=== PATIENT | male | born 1975 ===

== ENCOUNTER 2018-04-14 17:11 | Emergency (ER) | payer SELFPAY ==
[2018-04-14 17:42] VITALS: BP 128/81; PULSE 78; RESP 18; TEMP 98.6; O2SAT 100
[2018-04-14] MEDS ORDERED: Liquid Adhesive TOP ONE (17:50)
--- NOTE | 2018-04-14 17:54 | ED PDOC ---
Arrival/HPI - General Chief Complaint: Trauma Historian: Patient - History of Present Illness Narrative History of Present Illness (Text): 04/14/18 17:51 42yo male with no pmhx who present with frontal headache and forehead laceration s/p trauma this morning. States a pipe fell of on top of his head, while working this morning. States he decided to come to the ED this evening because the advised him to. He notes that his last TD vaccine was 4months ago. He denies LOC, focal weakness, nausea, vomiting, visual changes, any other complaint. States he did not take any medication for the pain. Past Medical History - Provider Review Nursing Documentation Reviewed: Yes - Genitourinary/Gynecological Hx Genitourinary Disorders: No - Psychiatric Hx Psychophysiologic Disorder: No Hx Substance Use: No - Anesthesia Hx Anesthesia: No Hx Anesthesia Reactions: No Hx Malignant Hyperthermia: No Family/Social History - Physician Review Nursing Documentation Reviewed: Yes Family/Social History: Unknown Family HX Smoking Status: Never Smoked Hx Alcohol Use: No Hx Substance Use: No Allergies/Home Meds Allergies/Adverse Reactions: Allergies No Known Allergies Allergy (Verified 04/14/18 17:42) Review of Systems - Physician Review All systems were reviewed & negative as marked: Yes - Review of Systems Constitutional: Normal Eyes: Normal ENT: Normal Respiratory: Normal Cardiovascular: Normal Gastrointestinal: Normal Genitourinary Male: Normal Musculoskeletal: Normal Skin: Laceration (forehead) Neurological: Headache Endocrine: Normal Hemo/Lymphatic: Normal Psychiatric: Normal Physical Exam Vital Signs Reviewed: Yes Vital Signs Temp Pulse Resp BP Pulse Ox 04/14/18 17:39 98.6 F 78 18 128/81 100 Temperature: Afebrile Blood Pressure: Normal Pulse: Regular Respiratory Rate: Normal Appearance: Positive for: Well-Appearing, Non-Toxic, Comfortable Pain Distress: None Mental Status: Positive for: Alert and Oriented X 3 - Systems Exam Head: Present: Normocephalic, Tenderness (Overlaying hematoma on the right frontal scalp), Contusion (Approximately 3.ocm x 2.0cm hematoma noted to right frontal scalp with overlaying tenderness to palpation), Laceration (Approximately 3.0cm linear superficial laceration noted on central forehead). No: Atraumatic Pupils: Present: PERRL Extroacular Muscles: Present: EOMI Conjunctiva: Present: Normal Mouth: Present: Moist Mucous Membranes Neck: Present: Normal Range of Motion Respiratory/Chest: Present: Clear to Auscultation, Good Air Exchange. No: Respiratory Distress, Accessory Muscle Use Cardiovascular: Present: Regular Rate and Rhythm, Normal S1, S2. No: Murmurs Abdomen: No: Tenderness, Distention, Peritoneal Signs Back: Present: Normal Inspection Upper Extremity: Present: Normal Inspection. No: Cyanosis, Edema Lower Extremity: Present: Normal Inspection. No: Edema Neurological: Present: GCS=15, CN II-XII Intact, Speech Normal Skin: Present: Warm, Dry, Normal Color. No: Rashes Psychiatric: Present: Alert, Oriented x 3, Normal Insight, Normal Concentration Medical Decision Making ED Course and Treatment: 04/14/18 18:06 42yo male in ED for laceration and headache s/p head injury this morning. Pt have hematoma on the frontal scalp with tenderness on palpation. PT is up to date with his TD booster. Head CT Dermabonding wound with steri strip Tramadol Ice to hematoma Will reassess 04/14/18 18:17 Laceration irrigated with NS. Approximated with Dermabond and steri strip. Head CT No mass effect or edema. No atrophy or chronic microvascular ischemic changes. VENTRICLES: No hydrocephalus. CALVARIUM: Unremarkable. PARANASAL SINUSES: Unremarkable as visualized. No significant inflammatory changes. MASTOID AIR CELLS: Unremarkable as visualized. No inflammatory changes. OTHER FINDINGS: Right scalp hematoma. IMPRESSION: Right scalp hematoma. No acute intracranial pathology identified. Result was DW the pt and he was DC home with Tramadol rx Advised to apply ice to area To keep wound clean and dry TRT ED for redness, fever, discharge - RAD Interpretation Radiology Orders: 04/14/18 17:50 HEAD W/O CONTRAST [CT] Stat Disposition/Present on Arrival - Present on Arrival Any Indicators Present on Arrival: No History of DVT/PE: No History of Uncontrolled Diabetes: No Urinary Catheter: No History of Decub. Ulcer: No History Surgical Site Infection Following: None - Disposition Have Diagnosis and Disposition been Completed?: Yes Diagnosis: Laceration, Hematoma, Head injury Disposition: HOME/ ROUTINE Disposition Time: 18:20 Patient Plan: Discharge Patient Problems: Current Active Problems Problem Status Onset Head injury Acute Hematoma Acute Laceration Acute Condition: STABLE Discharge Instructions (ExitCare): Closed Head Injury, Laceration Repair With Glue (DC) Additional Instructions: Keep wound clean and dry Apply ice to area Return to ED for fever, redness, discharge from wound Follow up with the clinic Prescriptions: traMADol [Ultram] 50 mg PO Q6 #8 tab Referrals: Juana Duggan MD [Medical Doctor] - Follow up with primary Forms: [employer] (Bolivian)
--- NOTE | 2018-04-14 18:16 | CT ---
Date of service: 04/14/2018 PROCEDURE: CT HEAD WITHOUT CONTRAST. HISTORY: s/p trauma COMPARISON: None available. TECHNIQUE: Axial computed tomography images were obtained through the head/brain without intravenous contrast. Radiation dose: Total exam DLP = 948.28 mGy-cm. This CT exam was performed using one or more of the following dose reduction techniques: Automated exposure control, adjustment of the mA and/or kV according to patient size, and/or use of iterative reconstruction technique. FINDINGS: HEMORRHAGE: No intracranial hemorrhage. BRAIN: No mass effect or edema. No atrophy or chronic microvascular ischemic changes. VENTRICLES: No hydrocephalus. CALVARIUM: Unremarkable. PARANASAL SINUSES: Unremarkable as visualized. No significant inflammatory changes. MASTOID AIR CELLS: Unremarkable as visualized. No inflammatory changes. OTHER FINDINGS: Right scalp hematoma. IMPRESSION: Right scalp hematoma. No acute intracranial pathology identified.
== END 2018-04-14 18:35 | disposition home or self-care (01) ==
LOC: ED 17:11
DX: S01.81XA Laceration without foreign body of other part of head, initial encounter (principal); W22.8XXA Striking against or struck by other objects, initial encounter; Y92.89 Other specified places as the place of occurrence of the external cause; Y99.8 Other external cause status

== ENCOUNTER 2018-04-18 00:35 | Emergency (ER) | payer SELFPAY ==
[2018-04-18 00:37] VITALS: BMI 30.4
[2018-04-18 00:42] VITALS: RESP 18
[2018-04-18] MEDS ORDERED: Bacitracin 500 Units/gm Oint Foilpak UD TOP ONE (00:56)
[2018-04-18] MEDS ORDERED: Bacitracin 500 Units/gm Oint Foilpak UD ONE (00:56)
--- NOTE | 2018-04-18 00:56 | ED PDOC ---
Arrival/HPI - General Chief Complaint: Trauma Time Seen by Provider: 04/18/18 00:39 Historian: Patient - History of Present Illness Narrative History of Present Illness (Text): 04/18/18 00:56 Saulo Blake is a 42 year old male, with no significant past medical history, who presents to the emergency department complaining of some swelling to his scalp abrasion and forehead laceration. Patient was recently seen in the emergency department on 04/14/2018 after a pipe fell on top of his head at work and he sustained a laceration to the mid forehead and a scalp abrasion. Patient now complaining of some swelling/pain to the area and some questionable discharge yesterday, none today. Patient denies any fever, chills redness/warmth to the area, or any other complaints. Symptom Onset: Gradual Symptom Course: Unchanged Activities at Onset: Light Context: Home Past Medical History - Provider Review Nursing Documentation Reviewed: Yes - Infectious Disease Hx of Infectious Diseases: None - Genitourinary/Gynecological Hx Genitourinary Disorders: No - Psychiatric Hx Psychophysiologic Disorder: No Hx Substance Use: No - Anesthesia Hx Anesthesia: No Hx Anesthesia Reactions: No Hx Malignant Hyperthermia: No Family/Social History - Physician Review Nursing Documentation Reviewed: Yes Family/Social History: Unknown Family HX Smoking Status: Never Smoked Hx Alcohol Use: Yes Frequency of alcohol use: Socially Hx Substance Use: No Allergies/Home Meds Allergies/Adverse Reactions: Allergies No Known Allergies Allergy (Verified 04/14/18 17:42) Review of Systems - Physician Review All systems were reviewed & negative as marked: Yes - Review of Systems Constitutional: Normal. absent: Fevers Eyes: Normal ENT: Normal Respiratory: Normal. absent: SOB, Cough Cardiovascular: Normal. absent: Chest Pain Gastrointestinal: Normal. absent: Abdominal Pain, Diarrhea, Nausea, Vomiting Genitourinary Male: Normal. absent: Dysuria, Frequency, Hematuria, Urinary Output Changes Musculoskeletal: Normal. absent: Back Pain, Neck Pain Skin: Normal. absent: Rash Neurological: Normal. absent: Headache, Dizziness Endocrine: Normal Hemo/Lymphatic: Normal Psychiatric: Normal Physical Exam Vital Signs Reviewed: Yes Vital Signs Temp Pulse Resp BP Pulse Ox 04/18/18 00:42 98.3 F 74 18 121/84 97 Temperature: Afebrile Blood Pressure: Normal Pulse: Regular Respiratory Rate: Normal Appearance: Positive for: Well-Appearing, Non-Toxic, Comfortable Pain Distress: None Mental Status: Positive for: Alert and Oriented X 3 - Systems Exam Head: Present: Normocephalic, Abrasion (Healing abrasion to parietal scalp), Laceration (Healing laceration to mid forehead), Other (no swelling or discharge/no erythema). No: Tenderness, Swelling Pupils: Present: PERRL Extroacular Muscles: Present: EOMI Conjunctiva: Present: Normal Mouth: Present: Moist Mucous Membranes Neck: Present: Normal Range of Motion Respiratory/Chest: Present: Clear to Auscultation, Good Air Exchange. No: Respiratory Distress, Accessory Muscle Use Cardiovascular: Present: Regular Rate and Rhythm, Normal S1, S2. No: Murmurs Abdomen: No: Tenderness, Distention, Peritoneal Signs Back: Present: Normal Inspection Upper Extremity: Present: Normal Inspection. No: Cyanosis, Edema Lower Extremity: Present: Normal Inspection. No: Edema Neurological: Present: GCS=15, CN II-XII Intact, Speech Normal Skin: Present: Warm, Dry, Normal Color. No: Rashes Psychiatric: Present: Alert, Oriented x 3, Normal Insight, Normal Concentration Medical Decision Making ED Course and Treatment: 04/18/18 00:56 Impression: 42 year old male complaining of some swelling to healing forehead laceration and scalp abrasion. Plan: -- Keflex -- Reassess and disposition Prior Visits: Notes and results from previous visits were reviewed. Progress Notes: PROCEDURE: WOUND CARE Performed by the emergency provider Consent: Informed consent, after discussion of the risks, benefits, and alternatives to the procedure was obtained. Timeout: A timeout to verify the correct patient, procedure, and site was performed. Indication: Dressing change Procedure Site: Mid forehead Length: 3cm Procedure: Prior steri-strips were removed.No wound discharge. New steri-strips were reapplied. The site was covered with Bacitracin and dressed with clean, dry, sterile dressing. The patient tolerated the procedure well. On reevaluation the patient feels better and is in no acute distress. Patient given prescription for oral antibiotics for prophylaxis. Patient is stable for discharge. Patient was instructed to follow up with physician/clinic in 1-2 days or return if symptoms persist/worsen or new concerning symptoms arise. - Scribe Statement The provider has reviewed the documentation as recorded by the Angelaibjarad Márquez All medical record entries made by the Angelaibjarad were at my direction and personally dictated by me. I have reviewed the chart and agree that the record accurately reflects my personal performance of the history, physical exam, medical decision making, and the department course for this patient. I have also personally directed, reviewed, and agree with the discharge instructions and disposition. Disposition/Present on Arrival - Present on Arrival Any Indicators Present on Arrival: No History of DVT/PE: No History of Uncontrolled Diabetes: No Urinary Catheter: No History of Decub. Ulcer: No History Surgical Site Infection Following: None - Disposition Have Diagnosis and Disposition been Completed?: Yes Diagnosis: Forehead laceration, Healing laceration Disposition: HOME/ ROUTINE Disposition Time: 01:06 Patient Plan: Discharge Condition: GOOD Additional Instructions: Keep wound clean and dry/take meds as prescribed/follow up with your doctor this week Prescriptions: Cephalexin [cephalexin] 500 mg PO BID #14 cap Forms: [employer] (Polish)
[2018-04-18 01:26] VITALS: BP 116/79; PULSE 75; TEMP 98.2; O2SAT 96
== END 2018-04-18 01:26 | disposition home or self-care (01) ==
LOC: ED 00:35
DX: S01.81XA Laceration without foreign body of other part of head, initial encounter (principal)